=== PATIENT | male | born 1945 | race American Indian/Alaskan Native ===

== ENCOUNTER 2017-12-31 05:43 | Inpatient (IN) | payer MEDICARE ==
[2017-12-18 09:38] VITALS: BMI 26.9
[2017-12-31] MEDS ORDERED: ceFAZolin 1 gm in NS 1 GM/100 ML BAG IVPB ONE (08:04)
[2017-12-31] MEDS ORDERED: Bupivacaine 0.25% 20 ML INJ IJ ONE (08:05)
[2017-12-31] MEDS ORDERED: Propofol 10 mg/ml Inj (20 ML) ONE (08:10)
[2017-12-31] MEDS: Bupivacaine HCl 0.5% PF (30 ml) Inj ONE ×2 (09:03→09:12)
[2017-12-31] MEDS ORDERED: HYDROmorphone 0.5 mg/0.5 ml ISec IVP PRN (09:20)
--- NOTE | 2017-12-31 09:34 | PCM.SURG1 ---
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
[2017-12-31] MEDS ORDERED: Oxycodone/Acetaminophen 5/325 mg Tab PO PRN (11:01)
[2017-12-31] MEDS: Metoprolol Succinate 100 mg XL Tab PO SCH (16:35)
--- NOTE | 2017-12-31 23:49 | CP.PCM.HP ---
History of Present Illness - History of Present Illness History of Present Illness: CC: s/p resection of scortum du eto scortal cancer HPI: elderly male with h/o HTN, CAD, s/p angioplasty, CKD on Hd recently diagnosed with scrotal cancer and had partial scrotal resection and is now post op, has dressing on perineal area, denies any post op complains Present on Admission - Present on Admission Any Indicators Present on Admission: Yes Review of Systems - Review of Systems Systems not reviewed;Unavailable: Acuity of Condition - Constitutional Constitutional: Fatigue, Malaise - EENT Eyes: absent: As Per HPI, Blind Spots, Blurred Vision, Change in Vision, Decreased Night Vision, Diplopia, Discharge, Dry Eye, Exophthalmos, Floaters, Irritation, Itchy Eyes, Loss of Peripheral Vision, Pain, Photophobia, Requires Corrective Lenses, Sees Flashes, Spots in Vision, Tunnel Vision, Other Visual Disturbances, Loss of Vision, Other Nose/Mouth/Throat: absent: As Per HPI, Epistaxis, Nasal Congestion, Nasal Discharge, Nasal Obstruction, Nasal Trauma, Nose Pain, Post Nasal Drip, Sinus Pain, Sinus Pressure, Bleeding Gums, Change in Voice, Dental Pain, Dry Mouth, Dysphagia, Halitosis, Hoarsness, Lip Swelling, Mouth Lesions, Mouth Pain, Odynophagia, Sore Throat, Throat Swelling, Tongue Swelling, Facial Pain, Neck Pain, Neck Mass, Other - Cardiovascular Cardiovascular: absent: As Per HPI, Acrocyanosis, Chest Pain, Chest Pain at Rest , Chest Pain with Activity, Claudication, Diaphoresis, Dyspnea, Dyspnea on Exertion, Edema, Irregular Heart Rhythm, Pain Radiating to Arm/Neck/Jaw, Leg Edema, Leg Ulcers, Lightheadedness, Orthopnea, Palpitations, Paroxysmal Nocturnal Dyspnea, Pedal Edema, Radiating Pain, Rapid Heart Rate, Slow Heart Rate, Syncope, Other - Genitourinary Genitourinary: Dysuria, Flank Pain, Pyuria, Nocturia - Reproductive: Male Reproductive:Male: Genital Lesions, Pelvic Pain Past Patient History - Past Medical History & Family History Past Medical History?: Yes - Past Social History Smoking Status: Never Smoked - CARDIAC Hx Cardiac Disorders: Yes Hx Circulatory Problems: Yes (CARDIAC STENT PLACEMENT) Hx Hypercholesterolemia: Yes Hx Hypertension: Yes - PULMONARY Hx Respiratory Disorders: Yes Hx Chronic Obstructive Pulmonary Disease (COPD): Yes - HEENT Hx HEENT Problems: Yes Hx Cataracts: Yes (AWAITING SURGERY) - INTEGUMENTARY Hx Dermatological Problems: Yes Hx Squamous Cell: Yes (LEFT SCROTUM) - MUSCULOSKELETAL/RHEUMATOLOGICAL Hx Falls: No - GASTROINTESTINAL Hx Gastrointestinal Disorders: Yes Hx Bowel Surgery: Yes - GENITOURINARY/GYNECOLOGICAL Hx Genitourinary Disorders: Yes Hx Prostate Problems: Yes - PSYCHIATRIC Hx Substance Use: No - SURGICAL HISTORY Hx Surgeries: Yes Hx Coronary Stent: Yes (2 YEARS AGO) - ANESTHESIA Hx Anesthesia: Yes Hx Anesthesia Reactions: No Hx Malignant Hyperthermia: No Has any member of the family had a problem w/ anesthesia?: No Meds Allergies/Adverse Reactions: Allergies Allergy/AdvReac Type Severity Reaction Status Date / Time pollen Allergy CONGESTION Uncoded 11/11/15 06:58 Physical Exam - Constitutional Appears: No Acute Distress - Eye Exam Eye Exam: EOMI, Normal appearance, PERRL Pupil Exam: NORMAL ACCOMODATION, PERRL - Respiratory Exam Respiratory Exam: Clear to Auscultation Bilateral, Rhonchi, NORMAL BREATHING PATTERN - Cardiovascular Exam Cardiovascular Exam: Tachycardia, REGULAR RHYTHM, +S1, +S2 - GI/Abdominal Exam GI & Abdominal Exam: Normal Bowel Sounds, Soft. absent: Tenderness - Rectal Exam Rectal Exam: Deferred Results - Vital Signs Recent Vital Signs: Last Vital Signs Temp 99.1 F 12/31/17 20:00 Pulse 98 H 12/31/17 20:00 Resp 18 12/31/17 20:00 BP 135/68 12/31/17 20:00 Pulse Ox 98 12/31/17 20:00 Assessment & Plan (1) Scrotal cancer Status: Acute (2) HTN (hypertension) Status: Acute (3) CKD (chronic kidney disease) Status: Acute
[2018-01-01 02:31] VITALS: RESP 20
[2018-01-01 07:24] LABS: HEMOGLOBIN 10.5 g/dL (12.0-18.0); MEAN CELL VOLUME 78.7 fL (80.0-94.0); MEAN CORPUSCULAR HEMOGLOBIN 25.5 pg (27.0-31.0); MEAN CORPUSCULAR HGB CONC 32.5 g/dL (33.0-37.0); MEAN PLATELET VOLUME 8.7 fL (7.2-11.7); RBC 4.12 Mil/uL (4.40-5.90)
[2018-01-01 07:34] LABS: CALCIUM 8.5 mg/dl (8.6-10.4)
[2018-01-01 08:12] VITALS: BP 131/77; PULSE 79; TEMP 98.5; O2SAT 98
[2018-01-01] MEDS ORDERED: ceFAZolin IV 1 gm in Dextrose 1 GM/50 ML BAG IVPB ONE (09:00)
[2018-01-01] MEDS: Metoprolol Succinate 100 mg XL Tab PO SCH (10:17)
--- NOTE | 2018-01-01 21:18 | OP ---
PROCEDURE DATE: 01/01/2018 PREOPERATIVE DIAGNOSIS: Scrotal carcinoma. POSTOPERATIVE DIAGNOSIS: Scrotal carcinoma. PROCEDURES: 1. Left scrotectomy. 2. Scrotoplasty. SLASHER OPERATOR SURGEON: Rosanna Khan MD DESCRIPTION OF PROCEDURE: The patient received perioperative antibiotics. The patient received general anesthesia via laryngeal mask airway. The genitalia, abdomen, and thighs were prepped and draped in a sterile fashion, with the patient in a frogleg position. The site of the scrotal cancer was identified on the left inferolateral aspect of the scrotum. The tumor was approximately 6 cm in diameter. There were some small satellite lesions around the tumor inferiorly as well. The site of the section was marked with marking pen. Incision was performed through the skin using electrocautery in the cutting mode. A margin of 2 cm was obtained circumferentially from all visible tumor. The incision was extended through the skin and subcutaneous and scrotal wall layers. The testicle was palpated as well. Intentional entry into the tunica vaginalis was made by sharp dissection. A full scrotal wall excision was performed. The surgeon's index finger was within the tunica vaginalis/hydrocele space. The testicle was noted to be normal and undeveloped as was the spermatic cord. Full circumferential incision was accomplished using electrocautery. Hemostasis was achieved during the resection. The scrotal wall was thus removed. The wound was copiously irrigated. The scrotal wall was reapproximated. The round/elliptical incision was closed. The round incision was converted to a semi-curvilinear incision to accomplish primary closure, as the scrotoplasty was thus performed. The tunica vaginalis had been closed with continuous locking suture of 3-0 chromic. The scrotal wall was reapproximated with interrupted sutures of 3-0 chromic. The wound was irrigated. A sterile compressive dressing was applied. Scrotal support was applied. The patient was returned to the supine position. The patient tolerated the procedure without complication. Rosanna Khan MD
--- NOTE | 2018-01-01 23:50 | CP.PCM.DIS ---
Provider - Provider Date of Admission: 12/31/17 10:57 Attending physician: Rosanna Khan MD Time Spent in preparation of Discharge (in minutes): 45 Diagnosis - Discharge Diagnosis (1) Scrotal cancer Status: Acute (2) HTN (hypertension) Status: Acute (3) CKD (chronic kidney disease) Status: Acute Hospital Course - Lab Results Lab Results: Most Recent Lab Values WBC 14.0 K/uL (4.8-10.8) H D 01/01/18 06:38 RBC 4.12 Mil/uL (4.40-5.90) L 01/01/18 06:38 Hgb 10.5 g/dL (12.0-18.0) L 01/01/18 06:38 Hct 32.4 % (35.0-51.0) L 01/01/18 06:38 MCV 78.7 fL (80.0-94.0) L 01/01/18 06:38 MCH 25.5 pg (27.0-31.0) L 01/01/18 06:38 MCHC 32.5 g/dL (33.0-37.0) L 01/01/18 06:38 RDW 17.0 % (11.5-14.5) H 01/01/18 06:38 Plt Count 231 K/uL (130-400) 01/01/18 06:38 MPV 8.7 fL (7.2-11.7) 01/01/18 06:38 Sodium 141 mmol/L (132-148) 01/01/18 06:38 Potassium 5.0 mmol/L (3.6-5.2) 01/01/18 06:38 Chloride 111 mmol/L (98-107) H 01/01/18 06:38 Carbon Dioxide 20 mmol/L (22-30) L 01/01/18 06:38 Anion Gap 15 (10-20) 01/01/18 06:38 BUN 35 mg/dL (9-20) H 01/01/18 06:38 Creatinine 3.0 mg/dL (0.8-1.5) H 01/01/18 06:38 Est GFR ( Amer) 25 01/01/18 06:38 Est GFR (Non-Af Amer) 21 01/01/18 06:38 Random Glucose 90 mg/dL (75-110) 01/01/18 06:38 Calcium 8.5 mg/dl (8.6-10.4) L 01/01/18 06:38 - Hospital Course Hospital Course: Pt was discharged today s/p resection of scortal carcinoma Discharge Plan - Follow Up Plan Condition: GOOD Disposition: HOME/ ROUTINE Instructions: Testicular Cancer, Chronic Kidney Disease (DC), Managing Pain After Surgery, Renal Failure Diet (DC), Hypertension (DC) Additional Instructions: limit activity for 24 hours. do not engage in sports or heavy work until your physician gives you permission take your pain medication as ordered by your physician shower daily starting Sunday wash wound with betadine reapply scrotal support and gauze follow up appointment with Dr. Khan one week after discharge Referrals: Rosanna Khan MD [Staff Provider] -
== END 2018-01-01 12:05 | disposition home or self-care (01) | DRG 722 ==
LOC: C.SDS 05:43 → C.9S 10:57 → C.6T 15:19
PROVIDERS: ADMIT Urology; ATTEND Urology
PROC: 0VT Male Reproductive System, Resection (ICD-10-PCS; principal; 2018-01-01)
PROC: 0VQ50ZZ Repair Scrotum, Open Approach (ICD-10-PCS; 2018-01-01)
DX: C63.2 Malignant neoplasm of scrotum (principal); N18.6 End stage renal disease; I12.0 Hypertensive chronic kidney disease with stage 5 chronic kidney disease or end stage renal disease; I25.10 Atherosclerotic heart disease of native coronary artery without angina pectoris; E78.00 Pure hypercholesterolemia, unspecified; J44.9 Chronic obstructive pulmonary disease, unspecified; Z85.49 Personal history of malignant neoplasm of other male genital organs; Z95.5 Presence of coronary angioplasty implant and graft; Z99.2 Dependence on renal dialysis

== ENCOUNTER 2018-02-18 05:51 | Day surgery (SDC) | payer MEDICARE ==
[2017-12-18 09:37] VITALS: BMI 26.9
[2018-02-18] MEDS ORDERED: ceFAZolin IV 1 gm in Dextrose 1 GM/50 ML BAG IVPB ONE (07:23)
[2018-02-18] MEDS ORDERED: Propofol 10 mg/ml Inj (20 ML) ONE (07:44)
[2018-02-18] MEDS ORDERED: Midazolam 2 MG/2 ML VIAL ONE (07:44)
[2018-02-18] MEDS ORDERED: Bacitracin Ointment 30 GM TUBE ONE (08:50)
[2018-02-18] MEDS ORDERED: Bupivacaine 0.25% 20 ML INJ IJ ONE (08:53)
[2018-02-18] MEDS ORDERED: HYDROmorphone 0.5 mg/0.5 ml ISec IVP PRN (09:17)
--- NOTE | 2018-02-18 09:31 | PCM.SURG1 ---
Surgeon's Initial Post Op Note - Surgeon's Notes Surgeon: Herson Khan Career Coach: none Type of Anesthesia: General LMA Pre-Operative Diagnosis: L scrotal / perineal mass Operative Findings: same Post-Operative Diagnosis: same Operation Performed: excision of L scrotal/perineal mass Specimen/Specimens Removed: L scrotal mass Estimated Blood Loss: EBL {In ML}: 15 Blood Products Given: N/A Drains Used: No Drains Post-Op Condition: Good Date of Surgery/Procedure: 02/18/18 Time of Surgery/Procedure: 09:15
[2018-02-18 11:52] VITALS: BP 157/87; PULSE 79; RESP 16; TEMP 97.7; O2SAT 100
--- NOTE | 2018-02-19 07:20 | OP ---
Copied To: Rosanna Khan MD Attending MD: Rosanna Khan MD PROCEDURE DATE: 02/18/2018 PREOPERATIVE DIAGNOSES: History of left scrotal carcinoma. Left scrotal/perineal mass. POSTOPERATIVE DIAGNOSES: History of left scrotal carcinoma. Left scrotal/perineal mass. PROCEDURE: Excision of left scrotal/perineal mass. OPERATING SURGEON: Rosanna Khan MD DESCRIPTION OF PROCEDURE: As follows: The patient received perioperative antibiotics. The patient was placed in supine position. The patient received general anesthesia via laryngeal mask airway. The patient was placed in a frog-leg position. The genitalia and perineum were prepped and thighs were prepped and draped and abdomen was prepped and draped in sterile fashion. The mass was palpated. The scrotal skin was healed without lesion. There was a 1 to 2 cm area of induration in the perineum extending into the scrotum. The testicles were palpated bilaterally and were normal. The mass involved the left side. The site incision was marked with marking pen. An elliptical incision was marked. The skin incision was made with scalpel. Incision was extended using electrocautery. By sharp dissection, the mass was fully excised. The mass was in the subcutaneous tissue and did not extend into the tunica vaginalis. The wound was copiously irrigated with saline. Hemostasis was achieved using electrocautery. The wound was then closed in two layers with interrupted sutures of 3-0 chromic. Skin was reapproximated with interrupted simple suture of 3-0 chromic. A sterile dressing, compressive dressing, and scrotal support were applied. The patient was returned to the supine position. The patient tolerated the procedure without complication. Rosanna Khan MD
== END 2018-02-18 10:48 | disposition home or self-care (01) ==
LOC: C.SDS 05:51
PROVIDERS: ATTEND Urology
DX: N49.2 Inflammatory disorders of scrotum (principal); N50.89 Other specified disorders of the male genital organs; I10 Essential (primary) hypertension; I25.10 Atherosclerotic heart disease of native coronary artery without angina pectoris; Z85.49 Personal history of malignant neoplasm of other male genital organs
CPT/HCPCS: 55150; 88307; J0690; J2250; J2704; J3010

== ENCOUNTER 2018-09-24 07:46 | Outpatient (CLI) | payer MEDICARE | END 2018-09-24 07:47 | disposition home or self-care (01) | LOC: C.PAT 07:46 | DX: N50.9 Disorder of male genital organs, unspecified (principal) ==

== ENCOUNTER 2018-09-25 12:30 | Observation (INO) | payer MEDICARE ==
[2018-09-25 12:31] VITALS: BMI 25.4
[2018-09-25 14:53] LABS: BASO # 0.1 K/uL (0.0-0.2); BASO % 0.7 % (0.0-2.0); EOS # 0.2 K/uL (0.0-0.7); EOS % 2.1 % (0.0-4.0); HEMOGLOBIN 10.4 g/dL (12.0-18.0); LYMPH # 2.9 K/uL (1.0-4.3); MEAN CELL VOLUME 82.8 fL (80.0-94.0); MEAN CORPUSCULAR HEMOGLOBIN 26.4 pg (27.0-31.0); MEAN CORPUSCULAR HGB CONC 31.8 g/dL (33.0-37.0); MEAN PLATELET VOLUME 8.9 fL (7.2-11.7); MONO # 0.7 K/uL (0.0-0.8); MONO % 8.3 % (0.0-10.0); NEUT # 4.9 K/uL (1.8-7.0); NEUT % 55.9 % (50.0-75.0); RBC 3.95 Mil/uL (4.40-5.90); WHITE BLOOD COUNT 8.7 K/uL (4.8-10.8)
[2018-09-25 15:16] LABS: ALB/GLOB RATIO 1.2 (1.0-2.1); ALBUMIN 4.5 g/dL (3.5-5.0); ALT/SGPT < 6 U/L (21-72); AST/SGOT 29 U/L (17-59); BLOOD UREA NITROGEN 26 mg/dL (9-20); CALCIUM 8.9 mg/dl (8.6-10.4); GFR NON-AFRICAN AMERICAN 22
[2018-09-25 15:34] LABS: URINE BILIRUBIN NEGATIVE (NEGATIVE); URINE BLOOD NEGATIVE (NEGATIVE); URINE CLARITY Clear (Clear); URINE COLOR Yellow (YELLOW); URINE GLUCOSE (UA) NORMAL (Normal); URINE LEUKOCYTE ESTERASE NEG Leu/uL (Negative); URINE PROTEIN 2+ mg/dL (NEGATIVE); URINE UROBILINOGEN NORMAL mg/dL (0.2-1.0)
[2018-09-25] MEDS ORDERED: Sodium Chloride 0.9% 1,000 ML ONE (16:44)
[2018-09-25] MEDS: Sodium Chloride 0.9% 1,000 ML IV SCH (16:50)
--- NOTE | 2018-09-25 17:35 | C.PDOC ---
History Of Present Illness 73 y/o male is sent in by his PMD Dr. Herson Khan for elevated potassium and creatinine. Patient is scheduled for urologic procedure next week. He was advised by Dr. Khan to come to ED for evaluation. Patient currently has no physical complaints. Chief Complaint (Nursing): Abnormal Labs History Per: Patient History/Exam Limitations: no limitations Past Medical History Reviewed: Historical Data, Nursing Documentation, Vital Signs Vital Signs: Last Vital Signs Temp 98.2 F 09/25/18 13:22 Pulse 87 09/25/18 14:32 Resp 15 09/25/18 14:32 BP 173/103 H 09/25/18 14:32 Pulse Ox 100 09/25/18 14:32 - Medical History PMH: Colonic Polyps, COPD, HTN, Hypercholesterolemia Denies: Chronic Kidney Disease Surgical History: Coronary Stent (2 YEARS AGO) - [place] Procedures ENDOSC POLYPECTOMY OF LG INTEST (08/06/14) ESOPHAGOGASTRODUODENOSCOPY [EGD] W/CLOSED BIOPSY (07/04/13) OPEN AND OTHER RIGHT HEMICOLECTOMY (07/04/13) PARENTERAL INFUSION OF CONCENTRATED NUT. SUBSTANCE (07/04/13) Family History: States: No Known Family Hx - Social History Hx Alcohol Use: No Hx Substance Use: No Review Of Systems Except As Marked, All Systems Reviewed And Found Negative. Constitutional: Negative for: Fever, Chills Cardiovascular: Negative for: Chest Pain Respiratory: Negative for: Shortness of Breath Gastrointestinal: Negative for: Nausea, Vomiting, Abdominal Pain Genitourinary: Negative for: Dysuria, Hematuria Physical Exam - Physical Exam Appears: Non-toxic, No Acute Distress Skin: Warm, Dry Head: Atraumatic, Normacephalic Eye(s): bilateral: Normal Inspection Oral Mucosa: Moist Neck: Supple Cardiovascular: Rhythm Regular, No Murmur Respiratory: Normal Breath Sounds, No Rales, No Rhonchi, No Wheezing Extremity: Bilateral: Atraumatic, Normal Color And Temperature, Normal ROM Neurological/Psych: Oriented x3, Normal Speech, Normal Cognition ED Course And Treatment - Laboratory Results Result Diagrams: 09/25/18 14:47 09/25/18 14:47 Lab Results: Troponin I < 0.0120 ng/mL (0.00-0.120) 09/25/18 14:47 Total Bilirubin 0.6 mg/dL (0.2-1.3) 09/25/18 14:47 AST 29 U/L (17-59) 09/25/18 14:47 ALT < 6 U/L (21-72) L 09/25/18 14:47 Alkaline Phosphatase 147 U/L (38-126) H 09/25/18 14:47 Total Protein 8.1 g/dL (6.3-8.3) 09/25/18 14:47 Albumin 4.5 g/dL (3.5-5.0) 09/25/18 14:47 Globulin 3.6 gm/dL (2.2-3.9) 09/25/18 14:47 Albumin/Globulin Ratio 1.2 (1.0-2.1) 09/25/18 14:47 Urine Color Yellow (YELLOW) 09/25/18 15:16 Urine Clarity Clear (Clear) 09/25/18 15:16 Urine pH 7.0 (5.0-8.0) 09/25/18 15:16 Ur Specific [place] 1.012 (1.003-1.030) 09/25/18 15:16 Urine Protein 2+ mg/dL (NEGATIVE) H 09/25/18 15:16 Urine Glucose (UA) Normal mg/dL (Normal) 09/25/18 15:16 Urine Ketones Negative mg/dL (NEGATIVE) 09/25/18 15:16 Urine Blood Negative (NEGATIVE) 09/25/18 15:16 Urine Nitrate Negative (NEGATIVE) 09/25/18 15:16 Urine Bilirubin Negative (NEGATIVE) 09/25/18 15:16 Urine Urobilinogen Normal mg/dL (0.2-1.0) 09/25/18 15:16 Ur Leukocyte Esterase Neg Micheal/uL (Negative) 09/25/18 15:16 Urine WBC (Auto) < 1 /hpf (0-5) 09/25/18 15:16 Urine RBC (Auto) < 1 /hpf (0-3) 09/25/18 15:16 O2 Sat by Pulse Oximetry: 100 (RA) Pulse Ox Interpretation: Normal Medical Decision Making Medical Decision Making: Plan: --Labs --UA --IV fluids --Kayexalate Spoke to Dr. Escobar. Patient to be admitted to his service in telemetry. Disposition - Disposition Disposition: HOSPITALIZED Disposition Time: 15:50 Condition: FAIR - Clinical Impression Clinical Impression: Hyperkalemia, Acute on chronic renal failure - Scribe Statement The provider has reviewed the documentation as recorded by the Jillianibcece Gallagher Provider Attestation: All medical record entries made by the Jillianibe were at my direction and personally dictated by me. I have reviewed the chart and agree that the record accurately reflects my personal performance of the history, physical exam, m edical decision making, and the department course for this patient. I have also personally directed, reviewed, and agree with the discharge instructions and disposition.
[2018-09-25 21:12] LABS: CALCIUM 8.5 mg/dl (8.6-10.4)
--- NOTE | 2018-09-25 22:31 | CP.PCM.HP ---
Present on Admission - Present on Admission Any Indicators Present on Admission: No Past Patient History - Past Medical History & Family History Past Medical History?: Yes - Past Social History Smoking Status: Current Some Days Smoker - CARDIAC Hx Hypercholesterolemia: Yes Hx Hypertension: Yes - PULMONARY Hx Chronic Obstructive Pulmonary Disease (COPD): Yes - HEENT Hx HEENT Problems: Yes Hx Cataracts: Yes (AWAITING SURGERY) - RENAL Hx Chronic Kidney Disease: No - ENDOCRINE/METABOLIC Hx Endocrine Disorders: No - HEMATOLOGICAL/ONCOLOGICAL Hx Blood Disorders: No - INTEGUMENTARY Hx Dermatological Problems: Yes Hx Squamous Cell: Yes (LEFT SCROTUM) - MUSCULOSKELETAL/RHEUMATOLOGICAL Hx Musculoskeletal Disorders: No - GASTROINTESTINAL Hx Gastrointestinal Disorders: Yes Hx Bowel Surgery: Yes - GENITOURINARY/GYNECOLOGICAL Hx Genitourinary Disorders: Yes Hx Prostate Problems: Yes - PSYCHIATRIC Hx Substance Use: No - SURGICAL HISTORY Hx Coronary Stent: Yes (2 YEARS AGO) - ANESTHESIA Hx Anesthesia: Yes Hx Anesthesia Reactions: No Hx Malignant Hyperthermia: No Meds Allergies/Adverse Reactions: Allergies Allergy/AdvReac Type Severity Reaction Status Date / Time No Known Allergies Allergy Verified 02/13/18 09:09 Results - Vital Signs Recent Vital Signs: Last Vital Signs Temp 97.8 F 09/25/18 22:22 Pulse 78 09/25/18 22:22 Resp 20 09/25/18 22:22 BP 169/90 H 09/25/18 22:22 Pulse Ox 99 09/25/18 22:22 - Labs Result Diagrams: 09/25/18 14:47 09/25/18 20:51 Labs: Laboratory Results - last 24 hr 09/25/18 09/25/18 09/25/18 14:47 14:47 15:16 WBC 8.7 RBC 3.95 L Hgb 10.4 L Hct 32.7 L MCV 82.8 MCH 26.4 L MCHC 31.8 L RDW 16.0 H Plt Count 211 MPV 8.9 Neut % (Auto) 55.9 Lymph % (Auto) 33.0 [place] % (Auto) 8.3 Eos % (Auto) 2.1 Baso % (Auto) 0.7 Neut # (Auto) 4.9 Lymph # (Auto) 2.9 [place] # (Auto) 0.7 Eos # (Auto) 0.2 Baso # (Auto) 0.1 Sodium 136 Potassium 5.7 H Chloride 107 Carbon Dioxide 22 Anion Gap 13 BUN 26 H Creatinine 2.8 H Est GFR ( Amer) 27 Est GFR (Non-Af Amer) 22 Random Glucose 79 Calcium 8.9 Total Bilirubin 0.6 AST 29 ALT < 6 L Alkaline Phosphatase 147 H Troponin I < 0.0120 Total Protein 8.1 Albumin 4.5 Globulin 3.6 Albumin/Globulin Ratio 1.2 Urine Color Yellow Urine Clarity Clear Urine pH 7.0 Ur Specific [place] 1.012 Urine Protein 2+ H Urine Glucose (UA) Normal Urine Ketones Negative Urine Blood Negative Urine Nitrate Negative Urine Bilirubin Negative Urine Urobilinogen Normal Ur Leukocyte Esterase Neg Urine WBC (Auto) < 1 Urine RBC (Auto) < 1 09/25/18 20:51 WBC RBC Hgb Hct MCV MCH MCHC RDW Plt Count MPV Neut % (Auto) Lymph % (Auto) [place] % (Auto) Eos % (Auto) Baso % (Auto) Neut # (Auto) Lymph # (Auto) [place] # (Auto) Eos # (Auto) Baso # (Auto) Sodium 137 Potassium 5.4 H Chloride 109 H Carbon Dioxide 23 Anion Gap 10 BUN 25 H Creatinine 2.8 H Est GFR ( Amer) 27 Est GFR (Non-Af Amer) 22 Random Glucose 79 Calcium 8.5 L Total Bilirubin AST ALT Alkaline Phosphatase Troponin I Total Protein Albumin Globulin Albumin/Globulin Ratio Urine Color Urine Clarity Urine pH Ur Specific [place] Urine Protein Urine Glucose (UA) Urine Ketones Urine Blood Urine Nitrate Urine Bilirubin Urine Urobilinogen Ur Leukocyte Esterase Urine WBC (Auto) Urine RBC (Auto)
[2018-09-26] MEDS: Sodium Chloride 0.9% 1,000 ML IV SCH ×5 (02:30→22:30)
[2018-09-26] MEDS ORDERED: Pneumococcal 23-Valent Vaccine IM ONE (10:00)
[2018-09-26] MEDS: Cilostazol 50 mg Tab UD PO SCH (10:46)
[2018-09-26] MEDS: Metoprolol Succinate 100 mg XL Tab PO SCH (10:46)
--- NOTE | 2018-09-26 12:28 | HP ---
CHIEF COMPLAINT: The patient referred by urologist for high potassium and creatinine. HISTORY OF PRESENT ILLNESS: This is a 73-year-old -[place] male well-known to me with history of coronary artery disease, status post angioplasty, hypertension, hyperlipidemia, CKD, COPD, anxiety and depression. He is compliant with his diet, medication, and followup. He has obstructive uropathy due to BPH and he has been seen by urologist on an outpatient basis. Urologist referred the patient yesterday to ER because of elevated potassium level. The patient came to the emergency room. He denies any chest pain, palpitation. He had weakness, dizziness. He also had high blood pressure. No cough. No sore throat. There is no history of any dietary noncompliance. The patient denies any history of chest pain. The patient denies any history of dizziness, vertigo. He denies any joint pain, leg pain. He has tingling and numbness in the feet. He has difficulty walking with pain in the legs upon walking, relieved by rest. There is no history of fever, chills, rigors. There is no history of cough, sore throat, runny nose. There is no history of dysuria. PAST MEDICAL HISTORY: Colon polyps, COPD, hypertension, hyperlipidemia, CKD, coronary artery disease, status post 2 stents. SOCIAL HISTORY: Ex-smoker. Non-EtOH user. CURRENT MEDICATIONS AT HOME: He is on Toprol XL, Flomax, Singulair, Uloric, Pepcid, calcitriol, Lipitor. PHYSICAL EXAMINATION: GENERAL: An elderly female, in no acute distress. VITAL SIGNS: Blood pressure 162/86, pulse 77, respiratory rate 20, temperature 97.8. SKIN: No rashes. No bruises. No purpura. No petechiae. No ecchymosis. HEENT: Atraumatic and normocephalic. Negative pallor. Negative jaundice. Extraocular movements are intact. NECK: Supple. No JVD. No lymph node. No thyromegaly. CHEST WALL: Bilateral symmetrical expansion. LUNGS: No rales or rhonchi seen. CARDIOVASCULAR SYSTEM: S1 and S2, regular. ABDOMEN: Soft, nontender. Bowel sounds are positive. EXTREMITIES: No clubbing, cyanosis, or edema. The patient has absent pretibial artery in the feet. CENTRAL NERVOUS SYSTEM: Awake, alert, and oriented x3. ASSESSMENT: 1. Hyperkalemia. 2. Chronic kidney disease. 3. Poorly controlled hypertension. 4. Rule out [id number] kidney disease. PLAN: Admit. Kayexalate. Repeat potassium. Telemetry. Monitor the patient. Eze Escobar MD
--- NOTE | 2018-09-26 12:45 | US ---
Renal ultrasound HISTORY: Acute renal failure. COMPARISON: CT scan dated 09/24/2018 Technique: Real-time sonography was performed through the kidneys. FINDINGS: Right kidney: 9.5 x 4.8 x 4.8 centimeters. Increased echogenicity of the renal parenchymal cortex suggestive for medical renal disease. Small amount of free fluid seen anterior to the right kidney. No gross calculi or hydronephrosis. Limited visualization of the aorta. Left kidney: 9.3 x 5.0 x 4.7 centimeters. Increased echogenicity of the renal parenchymal cortex suggestive for medical renal disease. No calculi or hydronephrosis. Underdistended urinary bladder limits evaluation. Impression: Increased echogenicity of the bilateral renal parenchymal cortices suggestive for medical renal disease. Clinical correlation. Small amount of free fluid adjacent and anterior to the right kidney. Clinical correlation. Limited visualization of the aorta. Underdistended urinary bladder limits evaluation.
[2018-09-26 14:35] LABS: CALCIUM 8.8 mg/dl (8.6-10.4)
--- NOTE | 2018-09-26 20:19 | CP.PCM.CON ---
History of Present Illness - History of Present Illness History of Present Illness: UROLOGY CONSULTATION IMP: SCROTAL CANCER LYMPHADENOPATHY CKD HYPERKALEMIA FULL NOTE TBD THANK YOU ys Past Patient History - Past Medical History & Family History Past Medical History?: Yes - Past Social History Smoking Status: Current Some Days Smoker - CARDIAC Hx Hypercholesterolemia: Yes Hx Hypertension: Yes - PULMONARY Hx Chronic Obstructive Pulmonary Disease (COPD): Yes - HEENT Hx HEENT Problems: Yes Hx Cataracts: Yes (AWAITING SURGERY) - RENAL Hx Chronic Kidney Disease: No - ENDOCRINE/METABOLIC Hx Endocrine Disorders: No - HEMATOLOGICAL/ONCOLOGICAL Hx Blood Disorders: No - INTEGUMENTARY Hx Dermatological Problems: Yes Hx Squamous Cell: Yes (LEFT SCROTUM) - MUSCULOSKELETAL/RHEUMATOLOGICAL Hx Musculoskeletal Disorders: No - GASTROINTESTINAL Hx Gastrointestinal Disorders: Yes Hx Bowel Surgery: Yes - GENITOURINARY/GYNECOLOGICAL Hx Genitourinary Disorders: Yes Hx Prostate Problems: Yes - PSYCHIATRIC Hx Substance Use: No - SURGICAL HISTORY Hx Coronary Stent: Yes (2 YEARS AGO) - ANESTHESIA Hx Anesthesia: Yes Hx Anesthesia Reactions: No Hx Malignant Hyperthermia: No Meds Allergies/Adverse Reactions: Allergies Allergy/AdvReac Type Severity Reaction Status Date / Time No Known Allergies Allergy Verified 02/13/18 09:09 - Medications Medications: Current Medications Amlodipine Besylate (Norvasc) 5 mg PO DAILY [facility] Last Admin: 09/26/18 10:46 Dose: 5 mg Calcitriol (Rocaltrol) 0.25 mcg PO QOD6 [facility] Cilostazol (Pletal) 50 mg PO DAILY [facility] Last Admin: 09/26/18 10:46 Dose: 50 mg Famotidine (Pepcid) 20 mg PO DAILY [facility] Heparin Sodium (Porcine) (Heparin) 5,000 units SC Q12 [facility] Last Admin: 09/26/18 10:46 Dose: 5,000 units Sodium Chloride (Sodium Chloride 0.9%) 1,000 mls @ 100 mls/hr IV .Q10H [facility] Last Admin: 09/26/18 18:10 Dose: 100 mls/hr Metoprolol Succinate (Toprol Xl) 100 mg PO DAILY [facility] Last Admin: 09/26/18 10:46 Dose: 100 mg Rosuvastatin Calcium (Crestor) 10 mg PO HS [facility] Sodium Polystyrene Sulfonate (Kayexalate) 15 gm PO TTS [facility] Last Admin: 09/26/18 18:10 Dose: 15 gm Tamsulosin HCl (Flomax) 0.4 mg PO DAILY [facility] Last Admin: 09/26/18 10:45 Dose: 0.4 mg Results - Vital Signs Recent Vital Signs: Last Vital Signs Temp 98.3 F 09/26/18 15:00 Pulse 79 09/26/18 16:00 Resp 20 09/26/18 15:00 BP 164/79 H 09/26/18 15:00 Pulse Ox 99 09/26/18 16:00 - Labs Result Diagrams: 09/25/18 14:47 09/26/18 13:54 Labs: Laboratory Results - last 24 hr 09/25/18 09/26/18 20:51 13:54 Sodium 137 137 Potassium 5.4 H 5.3 H Chloride 109 H 107 Carbon Dioxide 23 23 Anion Gap 10 12 BUN 25 H 26 H Creatinine 2.8 H 2.6 H Est GFR ( Amer) 27 29 Est GFR (Non-Af Amer) 22 24 Random Glucose 79 88 Calcium 8.5 L 8.8 Assessment & Plan - Date & Time Date: 09/26/18 Time: 20:18
--- NOTE | 2018-09-26 21:40 | CP.PCM.PN ---
Subjective - Date & Time of Evaluation Date of Evaluation: 09/26/18 Time of Evaluation: 19:40 - Subjective Subjective: dictated Objective - Vital Signs/Intake and Output Vital Signs (last 24 hours): Temp Pulse Resp BP Pulse Ox 98.3 F 79 20 164/79 H 99 09/26/18 15:00 09/26/18 16:00 09/26/18 15:00 09/26/18 15:00 09/26/18 16:00 Intake and Output: 09/26/18 09/27/18 18:59 06:59 Intake Total 800 Balance 800 - Medications Medications: Current Medications Amlodipine Besylate (Norvasc) 5 mg PO DAILY [facility] Last Admin: 09/26/18 10:46 Dose: 5 mg Calcitriol (Rocaltrol) 0.25 mcg PO QOD6 [facility] Cilostazol (Pletal) 50 mg PO DAILY [facility] Last Admin: 09/26/18 10:46 Dose: 50 mg Famotidine (Pepcid) 20 mg PO DAILY [facility] Heparin Sodium (Porcine) (Heparin) 5,000 units SC Q12 [facility] Last Admin: 09/26/18 21:01 Dose: 5,000 units Sodium Chloride (Sodium Chloride 0.9%) 1,000 mls @ 100 mls/hr IV .Q10H [facility] Last Admin: 09/26/18 18:10 Dose: 100 mls/hr Metoprolol Succinate (Toprol Xl) 100 mg PO DAILY [facility] Last Admin: 09/26/18 10:46 Dose: 100 mg Rosuvastatin Calcium (Crestor) 10 mg PO HS [facility] Last Admin: 09/26/18 21:01 Dose: 10 mg Sodium Polystyrene Sulfonate (Kayexalate) 15 gm PO TTS [facility] Last Admin: 09/26/18 18:10 Dose: 15 gm Tamsulosin HCl (Flomax) 0.4 mg PO DAILY [facility] Last Admin: 09/26/18 10:45 Dose: 0.4 mg - Labs Labs: 09/25/18 14:47 09/26/18 13:54
--- NOTE | 2018-09-26 23:34 | PN ---
DATE: 09/26/2018 SUBJECTIVE: The patient is feeling better. He is afebrile. No shortness of breath. No chest pain. His potassium is persistently high. He is on IV fluids. No nausea, vomiting. No weakness. No dizziness. PHYSICAL EXAMINATION: VITAL SIGNS: Blood pressure 164/79, pulse 83, respiratory rate 20, temperature 98.3. LUNGS: Clear. No rales. No rhonchi. Decreased air entry. CARDIOVASCULAR SYSTEM: S1 and S2, regular. No heave. No thrill. ABDOMEN: Soft, nontender. Bowel sounds are positive. ASSESSMENT: 1. Acute hyperkalemia, which is most likely due to renal insufficiency with type IV renal tubular acidosis is a possibility. 2. Chronic kidney disease. 3. Hypertension. 4. Chronic obstructive pulmonary disease. 5. Coronary artery disease. PLAN: Kayexalate. Repeat BNP. Renal consult. Monitor the patient. Eze Escobar MD
[2018-09-27] MEDS: Sodium Chloride 0.9% 1,000 ML IV SCH ×2 (04:34→08:21)
[2018-09-27 07:38] VITALS: RESP 20; TEMP 97.3; O2SAT 100
[2018-09-27 08:27] LABS: CALCIUM 8.6 mg/dl (8.6-10.4)
[2018-09-27] MEDS: Metoprolol Succinate 100 mg XL Tab PO SCH (09:29)
[2018-09-27] MEDS: Cilostazol 50 mg Tab UD PO SCH (09:29)
--- NOTE | 2018-09-27 12:19 | CP.PCM.PN ---
Subjective - Date & Time of Evaluation Date of Evaluation: 09/27/18 Time of Evaluation: 10:35 - Subjective Subjective: patient seen today , denies any complaints labs - reviewed- stable - cr- baseline - 2.8 - 3 potassium - improved- 4.7<5.6<6 Objective - Vital Signs/Intake and Output Vital Signs (last 24 hours): Temp Pulse Resp BP Pulse Ox 97.3 F L 69 20 165/82 H 100 09/27/18 07:20 09/27/18 07:20 09/27/18 07:20 09/27/18 08:02 09/27/18 07:20 Intake and Output: 09/27/18 09/27/18 06:59 18:59 Intake Total 1150 800 Output Total 800 Balance 1150 0 - Medications Medications: Current Medications Amlodipine Besylate (Norvasc) 5 mg PO DAILY [facility] Last Admin: 09/27/18 09:29 Dose: 5 mg Calcitriol (Rocaltrol) 0.25 mcg PO QOD6 [facility] Cilostazol (Pletal) 50 mg PO DAILY [facility] Last Admin: 09/27/18 09:29 Dose: 50 mg Famotidine (Pepcid) 20 mg PO DAILY [facility] Last Admin: 09/27/18 09:29 Dose: 20 mg Heparin Sodium (Porcine) (Heparin) 5,000 units SC Q12 [facility] Last Admin: 09/27/18 09:29 Dose: 5,000 units Sodium Chloride (Sodium Chloride 0.9%) 1,000 mls @ 100 mls/hr IV .Q10H [facility] Last Admin: 09/27/18 08:21 Dose: Not Given Metoprolol Succinate (Toprol Xl) 100 mg PO DAILY [facility] Last Admin: 09/27/18 09:29 Dose: 100 mg Rosuvastatin Calcium (Crestor) 10 mg PO HS [facility] Last Admin: 09/26/18 21:01 Dose: 10 mg Sodium Polystyrene Sulfonate (Kayexalate) 15 gm PO TTS [facility] Last Admin: 09/26/18 18:10 Dose: 15 gm Tamsulosin HCl (Flomax) 0.4 mg PO DAILY [facility] Last Admin: 09/27/18 09:29 Dose: 0.4 mg - Labs Labs: 09/25/18 14:47 09/27/18 08:07 Assessment and Plan - Assessment and Plan (Free Text) Assessment: A/P 73 yr old male with pmhx of COPD, HTN, Hypercholesterolemia ,Chronic Kidney Disease admitted for elevated potassium and creatinine cr- improved and base line before between 2.8-3 potassium improved from 6- 4.7 BP slightly elevated - started on norvasc D/W Dr. Escobar cleared for discharge home today and f/u with Dr. Escobar office in 1 week
[2018-09-27 13:25] VITALS: BP 158/78; PULSE 79
--- NOTE | 2018-09-27 22:21 | CP.PCM.DIS ---
Provider - Provider Date of Admission: 09/25/18 16:24 Attending physician: Eze Escobar MD Consults: 09/26/18 09:33 Urology Consult Routine Comment: pt known to you Consulting Provider: Rosanna Khan Consulting Physician: Rosanna Khan Reason for Consult: ARF 09/26/18 12:24 Nephrology Consult Routine Comment: Consulting Provider: Cynthia Moreland Consulting Physician: Cynthia Moreland Reason for Consult: CRF Time Spent in preparation of Discharge (in minutes): 30 Hospital Course - Lab Results Lab Results: Micro Results 09/25/18 15:16 Urine,Clean Catch Urine Culture - Final No Growth (<1,000 CFU/ML) Most Recent Lab Values WBC 8.7 K/uL (4.8-10.8) 09/25/18 14:47 RBC 3.95 Mil/uL (4.40-5.90) L 09/25/18 14:47 Hgb 10.4 g/dL (12.0-18.0) L 09/25/18 14:47 Hct 32.7 % (35.0-51.0) L 09/25/18 14:47 MCV 82.8 fL (80.0-94.0) 09/25/18 14:47 MCH 26.4 pg (27.0-31.0) L 09/25/18 14:47 MCHC 31.8 g/dL (33.0-37.0) L 09/25/18 14:47 RDW 16.0 % (11.5-14.5) H 09/25/18 14:47 Plt Count 211 K/uL (130-400) 09/25/18 14:47 MPV 8.9 fL (7.2-11.7) 09/25/18 14:47 Neut % (Auto) 55.9 % (50.0-75.0) 09/25/18 14:47 Lymph % (Auto) 33.0 % (20.0-40.0) 09/25/18 14:47 [place] % (Auto) 8.3 % (0.0-10.0) 09/25/18 14:47 Eos % (Auto) 2.1 % (0.0-4.0) 09/25/18 14:47 Baso % (Auto) 0.7 % (0.0-2.0) 09/25/18 14:47 Neut # (Auto) 4.9 K/uL (1.8-7.0) 09/25/18 14:47 Lymph # (Auto) 2.9 K/uL (1.0-4.3) 09/25/18 14:47 [place] # (Auto) 0.7 K/uL (0.0-0.8) 09/25/18 14:47 Eos # (Auto) 0.2 K/uL (0.0-0.7) 09/25/18 14:47 Baso # (Auto) 0.1 K/uL (0.0-0.2) 09/25/18 14:47 Sodium 138 mmol/L (132-148) 09/27/18 08:07 Potassium 4.7 mmol/L (3.6-5.2) 09/27/18 08:07 Chloride 110 mmol/L (98-107) H 09/27/18 08:07 Carbon Dioxide 22 mmol/L (22-30) 09/27/18 08:07 Anion Gap 11 (10-20) 09/27/18 08:07 BUN 26 mg/dL (9-20) H 09/27/18 08:07 Creatinine 2.8 mg/dL (0.8-1.5) H 09/27/18 08:07 Est GFR ( Amer) 27 09/27/18 08:07 Est GFR (Non-Af Amer) 22 09/27/18 08:07 Random Glucose 78 mg/dL (75-110) 09/27/18 08:07 Calcium 8.6 mg/dl (8.6-10.4) 09/27/18 08:07 Total Bilirubin 0.6 mg/dL (0.2-1.3) 09/25/18 14:47 AST 29 U/L (17-59) 09/25/18 14:47 ALT < 6 U/L (21-72) L 09/25/18 14:47 Alkaline Phosphatase 147 U/L (38-126) H 09/25/18 14:47 Troponin I < 0.0120 ng/mL (0.00-0.120) 09/25/18 14:47 Total Protein 8.1 g/dL (6.3-8.3) 09/25/18 14:47 Albumin 4.5 g/dL (3.5-5.0) 09/25/18 14:47 Globulin 3.6 gm/dL (2.2-3.9) 09/25/18 14:47 Albumin/Globulin Ratio 1.2 (1.0-2.1) 09/25/18 14:47 Urine Color Yellow (YELLOW) 09/25/18 15:16 Urine Clarity Clear (Clear) 09/25/18 15:16 Urine pH 7.0 (5.0-8.0) 09/25/18 15:16 Ur Specific Nelson 1.012 (1.003-1.030) 09/25/18 15:16 Urine Protein 2+ mg/dL (NEGATIVE) H 09/25/18 15:16 Urine Glucose (UA) Normal mg/dL (Normal) 09/25/18 15:16 Urine Ketones Negative mg/dL (NEGATIVE) 09/25/18 15:16 Urine Blood Negative (NEGATIVE) 09/25/18 15:16 Urine Nitrate Negative (NEGATIVE) 09/25/18 15:16 Urine Bilirubin Negative (NEGATIVE) 09/25/18 15:16 Urine Urobilinogen Normal mg/dL (0.2-1.0) 09/25/18 15:16 Ur Leukocyte Esterase Neg Micheal/uL (Negative) 09/25/18 15:16 Urine WBC (Auto) < 1 /hpf (0-5) 09/25/18 15:16 Urine RBC (Auto) < 1 /hpf (0-3) 09/25/18 15:16 Discharge Plan - Discharge Medications Prescriptions: Sodium Polystyrene Sulfonate [kayeXALATE Susp] 30 gm NA WM #8 bottle amLODIPine [Norvasc] 10 mg PO DAILY #60 tab Famotidine [Pepcid] 20 mg PO DAILY #30 tab - Follow Up Plan Condition: FAIR Disposition: HOME/ ROUTINE Instructions: Kidney Disease Diet (For People Not on Dialysis), Acute Kidney Failure (DC), Amlodipine, Famotidine, Sodium Polystyrene Sulfonate, Chronic Kidney Disease (DC), Hyperkalemia (GEN) Additional Instructions: Please follow up with Dr. Escobar office in 1 week Please continue kayexalate every week on Joni Please call Dr. Khan for domenico pre op procedure instructions for Sunday continue medication as per med. rec. [facility] Referrals: Eze Escobar MD [Staff Provider] -
--- NOTE | 2018-09-28 09:22 | DS ---
CHIEF COMPLAINT: Referred by urology physician. DISCHARGE DIAGNOSES: 1. Hyperkalemia due to chronic kidney disease. 2. Chronic kidney disease. 3. Hypertension. 4. Coronary artery disease, status post stent. 5. Chronic obstructive pulmonary disease. HISTORY OF PRESENT ILLNESS: This is a 73-year-old male, chronically sick with a history of PAD, coronary artery disease, hypertension, multiple stents, and who has been having some cough, and now, he has some urinary symptoms and he needs urological surgery. The patient's routine preop analysis was found to have hyperkalemia, referred to emergency room. He has baseline creatinine of around 3. The patient denies any chest pain, palpitation, weakness, or dizziness. He denies any history of polyuria, polydipsia, or polyphagia. He denies any history of joint pain or hip. He denies any history of tingling, numbness, or paraesthesia. There is no history of seizure-like activity. PAST MEDICAL HISTORY: CKD, hypertension, coronary artery disease, angioplasty, peripheral arterial disease, and poor memory. SOCIAL HISTORY: Nonsmoker. Non-ETOH user. CURRENT MEDICATIONS: Flomax, Singulair, Toprol, Pletal, Lipitor, Norvasc, Kayexalate, and Pepcid. PHYSICAL EXAMINATION: LUNGS: Clear. ABDOMEN: Soft, nontender. Bowel sounds are positive. RECTAL: Negative. EXTREMITIES: No clubbing, cyanosis, or edema. ASSESSMENT: 1. Hyperkalemia with chronic kidney disease, most likely the patient has type 4 renal tubular acidosis with component from poor diet compliant. 2. Poorly controlled hypertension. 3. Chronic kidney disease. 4. Hyperlipidemia. PLAN: Admit. Detail orders are written. Seen and examined. Eze Escobar MD
--- NOTE | 2018-09-28 23:59 | CON ---
DATE: 09/26/2018 UROLOGY CONSULTATION REQUESTED BY: Eze Escobar MD REASON FOR CONSULTATION: History of scrotal cancer. HISTORY OF PRESENT ILLNESS: The patient is a 73-year-old male with history of scrotal cancer. In 2018, the patient underwent a partial scrotectomy for scrotal cancer. The patient has been noted to have inguinal lymphadenopathy. The patient is scheduled for lymph node biopsy next week. During preadmission testing, the patient was found to have hyperkalemia with potassium of 6. The patient presented to the emergency room for evaluation of hyperkalemia. There was improvement of the potassium. However, the patient was found to have peaked T waves. The patient is now admitted for further evaluation and therapy. Mr. Handley reports good appetite. No recent hematuria or dysuria. No flank pain. The patient has normal bowel movements. The patient has history of chronic kidney disease. Creatinine once in the range of 2.5. The patient reports no abdominal pain or flank pain. No recent weight loss. The patient voids with a good urinary stream and good control. No incontinence. PHYSICAL EXAMINATION: GENERAL: The patient is a well-developed, well-nourished elderly male. The patient is awake and alert. ABDOMEN: Soft, nontender, and nondistended. No mass or organomegaly. BACK: No CVA tenderness. LYMPH NODES: There is left inguinal lymphadenopathy approximately 2 to 3 cm in size. The lymphadenopathy is firm and rounded with some fixation. IMPRESSION: History of left scrotal cancer, now with left inguinal adenopathy. The patient is now admitted for evaluation of renal insufficiency with hyperkalemia. PLAN: As per Nephrology and Medicine, the patient is scheduled for surgery next week. Review CT scan done on 09/24/2018. Further therapy to follow according to patient's clinical course. Thank you for recommending the patient for urology consultation. Rosanna Khan MD cc: Eze Escobar MD
--- NOTE | 2018-09-29 20:10 | CARD ---
APPROVED REPORT Date of service: 09/25/2018 EKG Measurement Heart [id number] <Conclusion> Normal sinus rhythm Normal ECG
== END 2018-09-27 13:52 | disposition home or self-care (01) ==
LOC: C.ER 12:30 → C.9E 16:24 → C.6T 18:01
PROVIDERS: ADMIT Internal Medicine; ATTEND Internal Medicine
DX: E87.5 Hyperkalemia (principal); I12.9 Hypertensive chronic kidney disease with stage 1 through stage 4 chronic kidney disease, or unspecified chronic kidney disease; E78.00 Pure hypercholesterolemia, unspecified; J44.9 Chronic obstructive pulmonary disease, unspecified; E78.5 Hyperlipidemia, unspecified; I25.10 Atherosclerotic heart disease of native coronary artery without angina pectoris; I73.9 Peripheral vascular disease, unspecified; N18.9 Chronic kidney disease, unspecified; N40.1 Benign prostatic hyperplasia with lower urinary tract symptoms; Z86.010 Personal history of colon polyps; Z87.891 Personal history of nicotine dependence; Z85.49 Personal history of malignant neoplasm of other male genital organs; Z95.5 Presence of coronary angioplasty implant and graft
CPT/HCPCS: 36415; 76770; 76857; 80048; 80053; 81001; 84484; 85025; 87086; 93005; 97116; 97162; 99285; G0378; G8978; G8979; G8980; J1644; J7030

== ENCOUNTER 2018-09-30 05:59 | Inpatient (IN) | payer MEDICARE ==
[2018-09-30] MEDS ORDERED: ceFAZolin 1 gm in NS 2 GM/200 ML BAG IVPB ONE (07:39)
[2018-09-30] MEDS ORDERED: Bupivacaine 0.25% 20 ML INJ IJ ONE (07:39)
[2018-09-30] MEDS ORDERED: Midazolam 2 MG/2 ML VIAL ONE (08:01)
[2018-09-30] MEDS ORDERED: Propofol 10 mg/ml Inj (20 ML) ONE (08:01)
[2018-09-30] MEDS ORDERED: HYDROmorphone 0.5 mg/0.5 ml ISec IVP PRN (10:49)
[2018-09-30] MEDS ORDERED: Dextrose 5%/0.45% NS 1,000 ML IV ONE (11:50)
[2018-09-30] MEDS ORDERED: Oxycodone/Acetaminophen 5/325 mg Tab PO PRN (13:15)
[2018-09-30] MEDS: Dextrose 5%/0.45% NS 1,000 ML IV SCH (19:30)
--- NOTE | 2018-09-30 21:39 | CP.PCM.CON ---
History of Present Illness - History of Present Illness History of Present Illness: dictated Past Patient History - Past Medical History & Family History Past Medical History?: Yes - Past Social History Smoking Status: Smoker Currrent Status Unknown - CARDIAC Hx Cardiac Disorders: Yes Hx Circulatory Problems: Yes (CARDIAC STENT PLACEMENT) Hx Hypercholesterolemia: Yes Hx Hypertension: Yes - PULMONARY Hx Respiratory Disorders: Yes Hx Chronic Obstructive Pulmonary Disease (COPD): Yes - HEENT Hx HEENT Problems: Yes Hx Blind: Yes (left eye) Hx Cataracts: Yes (AWAITING SURGERY) - HEMATOLOGICAL/ONCOLOGICAL Hx Blood Disorders: Yes Hx Cancer: Yes (scrotal cancer) - INTEGUMENTARY Hx Dermatological Problems: Yes Hx Squamous Cell: Yes (LEFT SCROTUM) - MUSCULOSKELETAL/RHEUMATOLOGICAL Hx Falls: No - GASTROINTESTINAL Hx Gastrointestinal Disorders: Yes Hx Bowel Surgery: Yes - GENITOURINARY/GYNECOLOGICAL Hx Genitourinary Disorders: Yes Hx Prostate Problems: Yes Other/Comment: scrotal cancer - PSYCHIATRIC Hx Substance Use: No - SURGICAL HISTORY Hx Surgeries: Yes Hx Cardiac Catheterization: Yes (5 yaers ago) Hx Coronary Stent: Yes (2 YEARS AGO) Other/Comment: Scrotal Surgery - ANESTHESIA Hx Anesthesia: Yes Hx Anesthesia Reactions: No Hx Malignant Hyperthermia: No Has any member of the family had a problem w/ anesthesia?: No Meds Allergies/Adverse Reactions: Allergies Allergy/AdvReac Type Severity Reaction Status Date / Time No Known Allergies Allergy Verified 02/13/18 09:09 - Medications Medications: Current Medications Cilostazol (Pletal) 100 mg PO DAILY [facility] Famotidine (Pepcid) 20 mg PO DAILY [facility] Hydromorphone HCl (Dilaudid) 0.5 mg IVP Q10M PRN PRN Reason: Pain, moderate (4-7) Last Admin: 09/30/18 11:36 Dose: 0.5 mg Cefazolin Sodium 1,000 mg/ (Sodium Chloride) 100 mls @ 100 mls/hr IVPB Q8H [facility]; Protocol Last Admin: 09/30/18 17:00 Dose: 0 mls Dextrose/Sodium Chloride (Dextrose 5%/0.45% Ns 1000 Ml) 1,000 mls @ 100 mls/hr IV .Q10H [facility] Metoprolol Succinate (Toprol Xl) 100 mg PO DAILY [facility] Montelukast Sodium (Singulair) 10 mg PO DAILY [facility] Oxycodone/Acetaminophen (Percocet 5/325 Mg Tab) 1 tab PO Q4H PRN PRN Reason: Pain, moderate (4-7) Stop: 10/03/18 13:16 Pneumococcal Polyvalent Vaccine (Pneumovax 23 Vaccine) 0.5 ml IM .ONCE ONE Stop: 10/03/18 10:01 Rosuvastatin Calcium (Crestor) 20 mg PO HS [facility] Tamsulosin HCl (Flomax) 0.4 mg PO DAILY [facility] Results - Vital Signs Recent Vital Signs: Last Vital Signs Temp 97.6 F 09/30/18 18:30 Pulse 82 09/30/18 18:30 Resp 15 09/30/18 18:30 BP 140/77 09/30/18 18:30 Pulse Ox 100 09/30/18 18:30 - Labs Result Diagrams: 09/30/18 07:01 Labs: Laboratory Results - last 24 hr 09/30/18 07:01 Potassium 4.5
[2018-09-30 22:54] VITALS: RESP 20
--- NOTE | 2018-10-01 00:01 | PCM.SURG1 ---
Surgeon's Initial Post Op Note - Surgeon's Notes Surgeon: Alin Lisa Top Polisher: Kenia Type of Anesthesia: General LMA Pre-Operative Diagnosis: Hx of scrotal cancer. L inguinal lymphadenopathy Operative Findings: same Post-Operative Diagnosis: same Operation Performed: L inguinal lymphadenectomy Specimen/Specimens Removed: L inguinal lymph nodes Estimated Blood Loss: EBL {In ML}: 20 Blood Products Given: N/A Drains Used: Navdeep Post-Op Condition: Good Date of Surgery/Procedure: 09/30/18 Time of Surgery/Procedure: 10:30
--- NOTE | 2018-10-01 06:17 | CON ---
DATE: 09/30/2018 The patient is admitted post-operatively. HISTORY OF PRESENT ILLNESS: This is a 73-year-old male, well known to me with a history of coronary artery disease, status post stents, hypertension, hyperlipidemia, CKD, not on hemodialysis. He is compliant with his diet, medications and followup with Urology, and he is hospitalized postop. Postop, he is out of the recovery and he is on the floor due to chest pain, shortness of breath, diaphoresis, dizziness, and palpitations. He denies any nausea, vomiting, or abdominal pain. He denies any dizziness. He denies any difficulty breathing. There is tingling and numbness in the feet. He gets claudication while ambulating. There is no history of dysuria. The patient has currently Espinoza catheter in place with clear yellow straw-colored urine. There is no further symptom. There is no history of sneezing, itchy eyes, or itchy nose. PAST MEDICAL HISTORY: CKD stage 4, benign prostatic hyperplasia, hypertension, hyperlipidemia, coronary artery disease, status post angioplasty, and COPD. SOCIAL HISTORY: Ex-smoker, ex-ETOH user. CURRENT MEDICATIONS: Toprol-XL, Flomax, Proscar, and aspirin. FAMILY HISTORY: Negative for prostate cancer. PHYSICAL EXAMINATION: GENERAL: An elderly male who is not in any acute cardiopulmonary distress. VITAL SIGNS: Blood pressure 132/60, pulse 64, respiratory rate 20, and temperature 99. SKIN: Senile turgor, dry. HEENT: Atraumatic and normocephalic. Negative pallor. Negative jaundice. Extraocular movements are intact. NECK: Supple. No JVD. No lymph node. No thyromegaly. CHEST WALL: Bilateral symmetrical expansion. LUNGS: Clear. No rales. No rhonchi. CARDIOVASCULAR SYSTEM: PMI not localized. S1 and S2, regular. No heave. No thrill. ABDOMEN: Soft and nontender. Bowel sounds are positive. RECTAL: Deferred because of postop. PELVIS: Deferred because of postop. CENTRAL NERVOUS SYSTEM: Awake, alert, and oriented x3. Cranial nerves II through XII are normal. Power is 5/5 x4. Plantars are downgoing. EXTREMITIES: The patient has absent dorsalis pedis and posterior tibial arteries. There is no clubbing, cyanosis, or edema. ASSESSMENT: 1. Status post cystoscopy. We will observe the patient. 2. Hypertension. 3. Coronary artery disease. 4. Chronic obstructive pulmonary disease. PLAN: Admit. Detailed orders are written. Seen and examined. Eze Escobar MD
[2018-10-01] MEDS: Dextrose 5%/0.45% NS 1,000 ML IV SCH ×3 (07:20→18:30)
[2018-10-01] MEDS: Metoprolol Succinate 100 mg XL Tab PO SCH (09:53)
[2018-10-01] MEDS: Cilostazol 100 mg Tab UD PO SCH (09:54)
[2018-10-01 12:01] LABS: BASO % 0.4 % (0.0-2.0); EOS # 0.1 K/uL (0.0-0.7); EOS % 1.7 % (0.0-4.0); LYMPH # 2.5 K/uL (1.0-4.3); LYMPH % 30.1 % (20.0-40.0); MEAN CELL VOLUME 81.6 fL (80.0-94.0); MEAN CORPUSCULAR HEMOGLOBIN 26.6 pg (27.0-31.0); MEAN CORPUSCULAR HGB CONC 32.6 g/dL (33.0-37.0); MEAN PLATELET VOLUME 8.4 fL (7.2-11.7); MONO # 0.7 K/uL (0.0-0.8); MONO % 8.2 % (0.0-10.0); NEUT # 4.9 K/uL (1.8-7.0); NEUT % 59.6 % (50.0-75.0); NRBC % 0.1 % (0.0-2.0); RBC 3.75 Mil/uL (4.40-5.90); WHITE BLOOD COUNT 8.3 K/uL (4.8-10.8)
[2018-10-01 12:20] LABS: ALBUMIN 3.5 g/dL (3.5-5.0); ALT/SGPT < 6 U/L (21-72); AST/SGOT 14 U/L (17-59); BLOOD UREA NITROGEN 17 mg/dL (9-20); CALCIUM 8.3 mg/dl (8.6-10.4); GFR NON-AFRICAN AMERICAN 28
[2018-10-01 14:21] LABS: HEMOGLOBIN 11.2 g/dL (12.0-18.0); MEAN CELL VOLUME 82.1 fL (80.0-94.0); MEAN CORPUSCULAR HEMOGLOBIN 26.8 pg (27.0-31.0); MEAN CORPUSCULAR HGB CONC 32.6 g/dL (33.0-37.0); MEAN PLATELET VOLUME 8.3 fL (7.2-11.7); RBC 4.18 Mil/uL (4.40-5.90); RED CELL DISTRIBUTION WIDTH 16.4 % (11.5-14.5); WHITE BLOOD COUNT 8.8 K/uL (4.8-10.8)
[2018-10-01 14:35] LABS: CALCIUM 8.5 mg/dl (8.6-10.4)
--- NOTE | 2018-10-01 21:46 | CP.PCM.PN ---
Subjective - Date & Time of Evaluation Date of Evaluation: 10/01/18 Time of Evaluation: 09:00 - Subjective Subjective: dict Objective - Vital Signs/Intake and Output Vital Signs (last 24 hours): Temp Pulse Resp BP Pulse Ox 98.4 F 84 20 137/80 98 10/01/18 15:00 10/01/18 15:00 10/01/18 15:00 10/01/18 15:00 10/01/18 15:00 Intake and Output: 10/01/18 10/02/18 18:59 06:59 Intake Total 1580 Output Total 1215 Balance 365 - Medications Medications: Current Medications Cilostazol (Pletal) 100 mg PO DAILY [facility] Last Admin: 10/01/18 09:54 Dose: 100 mg Docusate Sodium (Colace) 100 mg PO TID [facility] Last Admin: 10/01/18 18:00 Dose: 100 mg Famotidine (Pepcid) 20 mg PO DAILY [facility] Last Admin: 10/01/18 09:53 Dose: 20 mg Hydromorphone HCl (Dilaudid) 0.5 mg IVP Q10M PRN PRN Reason: Pain, moderate (4-7) Last Admin: 09/30/18 11:36 Dose: 0.5 mg Cefazolin Sodium 1,000 mg/ (Sodium Chloride) 100 mls @ 100 mls/hr IVPB Q8H [facility]; Protocol Last Admin: 10/01/18 16:00 Dose: 100 mls/hr Dextrose/Sodium Chloride (Dextrose 5%/0.45% Ns 1000 Ml) 1,000 mls @ 100 mls/hr IV .Q10H [facility] Last Admin: 10/01/18 18:30 Dose: 100 mls/hr Metoprolol Succinate (Toprol Xl) 100 mg PO DAILY [facility] Last Admin: 10/01/18 09:53 Dose: 100 mg Montelukast Sodium (Singulair) 10 mg PO DAILY [facility] Last Admin: 10/01/18 09:53 Dose: 10 mg Oxycodone/Acetaminophen (Percocet 5/325 Mg Tab) 1 tab PO Q4H PRN PRN Reason: Pain, moderate (4-7) Stop: 10/03/18 13:16 Pneumococcal Polyvalent Vaccine (Pneumovax 23 Vaccine) 0.5 ml IM .ONCE ONE Stop: 10/03/18 10:01 Rosuvastatin Calcium (Crestor) 20 mg PO [facility] Last Admin: 09/30/18 21:55 Dose: Not Given Tamsulosin HCl (Flomax) 0.4 mg PO DAILY [facility] Last Admin: 10/01/18 09:53 Dose: 0.4 mg - Labs Labs: 10/01/18 14:13 10/01/18 14:13
[2018-10-02 00:58] VITALS: O2SAT 95
--- NOTE | 2018-10-02 03:12 | PN ---
DATE: 10/01/2018 SUBJECTIVE: The patient is afebrile. No shortness of breath. He is status post lymph node dissection from the groin. He is postop and his potassium is normal. He is on IV fluids. PHYSICAL EXAMINATION: VITAL SIGNS: Blood pressure 137/80, pulse 54, respiratory rate 20, temperature 98.4. LUNGS: Clear. CARDIOVASCULAR SYSTEM: S1 and S2, regular. ABDOMEN: Soft. ASSESSMENT: 1. Scrotal carcinoma, status post lymph node resection. 2. Coronary artery disease. 3. Peripheral arterial disease. 4. Chronic kidney disease. PLAN: Continue current medications. Monitor the patient. Eze Escobar MD
[2018-10-02 07:43] VITALS: BP 138/72; PULSE 79; TEMP 98.3
--- NOTE | 2018-10-02 09:50 | PCM.URO ---
Urology Progress Note - General General: No Complaints, Tolerating Diet - Subjective Abdominal Pain: No Flank Pain: No Nausea: No Vomiting: No Hematuria: No Dsypnea: No Chest Pain: No Fever & Chills: No - Objective Lab Results Last 24 Hours: Laboratory Results - last 24 hr 10/01/18 10/01/18 10/01/18 11:49 11:49 14:13 WBC 8.3 8.8 RBC 3.75 L 4.18 L Hgb 10.0 L 11.2 L Hct 30.6 L 34.3 L MCV 81.6 82.1 MCH 26.6 L 26.8 L MCHC 32.6 L 32.6 L RDW 16.0 H 16.4 H Plt Count 236 260 MPV 8.4 8.3 Neut % (Auto) 59.6 Lymph % (Auto) 30.1 [place] % (Auto) 8.2 Eos % (Auto) 1.7 Baso % (Auto) 0.4 Neut # (Auto) 4.9 Lymph # (Auto) 2.5 [place] # (Auto) 0.7 Eos # (Auto) 0.1 Baso # (Auto) 0.0 Sodium 135 Potassium 4.3 Chloride 106 Carbon Dioxide 22 Anion Gap 11 BUN 17 Creatinine 2.3 H Est GFR ( Amer) 34 Est GFR (Non-Af Amer) 28 Random Glucose 107 D Calcium 8.3 L Total Bilirubin 0.2 AST 14 L D ALT < 6 L Alkaline Phosphatase 99 Total Protein 6.9 Albumin 3.5 D Globulin 3.5 Albumin/Globulin Ratio 1.0 10/01/18 14:13 WBC RBC Hgb Hct MCV MCH MCHC RDW Plt Count MPV Neut % (Auto) Lymph % (Auto) [place] % (Auto) Eos % (Auto) Baso % (Auto) Neut # (Auto) Lymph # (Auto) [place] # (Auto) Eos # (Auto) Baso # (Auto) Sodium 136 Potassium 4.8 Chloride 105 Carbon Dioxide 22 Anion Gap 14 BUN 18 Creatinine 2.3 H Est GFR ( Amer) 34 Est GFR (Non-Af Amer) 28 Random Glucose 111 H Calcium 8.5 L Total Bilirubin AST ALT Alkaline Phosphatase Total Protein Albumin Globulin Albumin/Globulin Ratio Intake & Output: Intake & Output 10/01/18 10/02/18 10/02/18 18:59 06:59 18:59 Intake Total 1580 400 Output Total 1215 50 620 Balance 365 350 -620 Intake: Intake, IV Amount 1100 100 Left Antecubital 1100 100 Oral 480 300 Output: Drainage 40 50 20 Left Upper Thigh 40 50 20 Urine 1175 600 2-way Urethral 1175 600 Other: # Voids 2-way Urethral 2 # Bowel Movements 0 Vital Signs: Vital Signs - 24 hr 10/01/18 10/02/18 10/02/18 15:00 00:00 07:42 Temperature 98.4 F 98.5 F 98.3 F Pulse Rate 84 84 79 Respiratory 20 20 20 Rate Blood Pressure 137/80 124/71 138/72 O2 Sat by Pulse 98 95 95 Oximetry - Physical Exam Abdominal Exam: Soft, Non-Tender, Non-Distended Bowel Sounds: Normal Dressing: Dry (Drain in place, clear drainage), Intact Back: No CVA Tenderness Genitalia: Without Inflammation Urinary Catheter Draining Well: Yes Extremities: Normal: Bilateral - Male Phallus: Normal Scrotum: Normal - Plan Advance Diet: Yes Discontinue Urinary Catheter: Yes Wound Care: Yes Intake & Output: Yes See Orders: Yes Additional Information: IMP: Doing well, POD#1. See orders - Date & Time of Note Date: 10/01/18 Time: 10:00
[2018-10-02] MEDS: Cilostazol 100 mg Tab UD PO SCH (09:57)
[2018-10-02] MEDS: Metoprolol Succinate 100 mg XL Tab PO SCH (09:57)
--- NOTE | 2018-10-02 10:01 | PCM.URO ---
Urology Progress Note - General General: No Complaints, Tolerating Diet - Subjective Abdominal Pain: No Flank Pain: No Nausea: No Vomiting: No Voiding Well: Yes Dysuria: No Hematuria: No [place]: Yes Dsypnea: No Chest Pain: No Fever & Chills: No - Objective Lab Studies: Reviewed Lab Results Last 24 Hours: Laboratory Results - last 24 hr 10/01/18 10/01/18 10/01/18 11:49 11:49 14:13 WBC 8.3 8.8 RBC 3.75 L 4.18 L Hgb 10.0 L 11.2 L Hct 30.6 L 34.3 L MCV 81.6 82.1 MCH 26.6 L 26.8 L MCHC 32.6 L 32.6 L RDW 16.0 H 16.4 H Plt Count 236 260 MPV 8.4 8.3 Neut % (Auto) 59.6 Lymph % (Auto) 30.1 [place] % (Auto) 8.2 Eos % (Auto) 1.7 Baso % (Auto) 0.4 Neut # (Auto) 4.9 Lymph # (Auto) 2.5 [place] # (Auto) 0.7 Eos # (Auto) 0.1 Baso # (Auto) 0.0 Sodium 135 Potassium 4.3 Chloride 106 Carbon Dioxide 22 Anion Gap 11 BUN 17 Creatinine 2.3 H Est GFR ( Amer) 34 Est GFR (Non-Af Amer) 28 Random Glucose 107 D Calcium 8.3 L Total Bilirubin 0.2 AST 14 L D ALT < 6 L Alkaline Phosphatase 99 Total Protein 6.9 Albumin 3.5 D Globulin 3.5 Albumin/Globulin Ratio 1.0 10/01/18 14:13 WBC RBC Hgb Hct MCV MCH MCHC RDW Plt Count MPV Neut % (Auto) Lymph % (Auto) [place] % (Auto) Eos % (Auto) Baso % (Auto) Neut # (Auto) Lymph # (Auto) [place] # (Auto) Eos # (Auto) Baso # (Auto) Sodium 136 Potassium 4.8 Chloride 105 Carbon Dioxide 22 Anion Gap 14 BUN 18 Creatinine 2.3 H Est GFR ( Amer) 34 Est GFR (Non-Af Amer) 28 Random Glucose 111 H Calcium 8.5 L Total Bilirubin AST ALT Alkaline Phosphatase Total Protein Albumin Globulin Albumin/Globulin Ratio Intake & Output: Intake & Output 10/01/18 10/02/1810/02/19 18:59 06:59 18:59 Intake Total 1580 400 Output Total 1215 50 620 Balance 365 350 -620 Intake: Intake, IV Amount 1100 100 Left Antecubital 1100 100 Oral 480 300 Output: Drainage 40 50 20 Left Upper Thigh 40 50 20 Urine 1175 600 2-way Urethral 1175 600 Other: # Voids 2-way Urethral 2 # Bowel Movements 0 Vital Signs: Vital Signs - 24 hr 10/01/18 10/02/18 10/02/18 15:00 00:00 07:42 Temperature 98.4 F 98.5 F 98.3 F Pulse Rate 84 84 79 Respiratory 20 20 20 Rate Blood Pressure 137/80 124/71 138/72 O2 Sat by Pulse 98 95 95 Oximetry - Physical Exam Abdominal Exam: Soft, Non-Tender, Non-Distended Bowel Sounds: Normal Wound: Clean, Healing Well Back: No CVA Tenderness Genitalia: Without Inflammation Urine Color: Clear, Yellow - Male Phallus: Normal Scrotum: Normal - Plan Wound Care: Yes Additional Information: Drain care. Wound care - Date & Time of Note Date: 10/02/18 Time: 10:01
[2018-10-02] MEDS: Dextrose 5%/0.45% NS 1,000 ML IV SCH (13:09)
--- NOTE | 2018-10-02 13:18 | CP.PCM.PN ---
Subjective - Date & Time of Evaluation Date of Evaluation: 10/02/18 Time of Evaluation: 13:17 - Subjective Subjective: PATIENT SEEN AND EXAMINED AT THE BEDSIDE Objective - Vital Signs/Intake and Output Vital Signs (last 24 hours): Temp Pulse Resp BP Pulse Ox 98.3 F 79 20 138/72 95 10/02/18 07:42 10/02/18 07:42 10/02/18 07:42 10/02/18 07:42 10/02/18 07:42 Intake and Output: 10/02/18 10/02/18 06:59 18:59 Intake Total 400 Output Total 50 620 Balance 350 -620 - Medications Medications: Current Medications Cilostazol (Pletal) 100 mg PO DAILY [facility] Last Admin: 10/02/18 09:57 Dose: 100 mg Docusate Sodium (Colace) 100 mg PO TID [facility] Last Admin: 10/02/18 09:57 Dose: 100 mg Famotidine (Pepcid) 20 mg PO DAILY [facility] Last Admin: 10/02/18 09:57 Dose: 20 mg Hydromorphone HCl (Dilaudid) 0.5 mg IVP Q10M PRN PRN Reason: Pain, moderate (4-7) Last Admin: 09/30/18 11:36 Dose: 0.5 mg Dextrose/Sodium Chloride (Dextrose 5%/0.45% Ns 1000 Ml) 1,000 mls @ 100 mls/hr IV .Q10H [facility] Last Admin: 10/02/18 13:09 Dose: Not Given Metoprolol Succinate (Toprol Xl) 100 mg PO DAILY [facility] Last Admin: 10/02/18 09:57 Dose: 100 mg Montelukast Sodium (Singulair) 10 mg PO DAILY [facility] Last Admin: 10/02/18 09:57 Dose: 10 mg Oxycodone/Acetaminophen (Percocet 5/325 Mg Tab) 1 tab PO Q4H PRN PRN Reason: Pain, moderate (4-7) Stop: 10/03/18 13:16 Pneumococcal Polyvalent Vaccine (Pneumovax 23 Vaccine) 0.5 ml IM .ONCE ONE Stop: 10/03/18 10:01 Rosuvastatin Calcium (Crestor) 20 mg PO HS [facility] Last Admin: 09/30/18 21:55 Dose: Not Given Tamsulosin HCl (Flomax) 0.4 mg PO DAILY [facility] Last Admin: 10/02/18 09:57 Dose: 0.4 mg - Labs Labs: 10/01/18 14:13 10/01/18 14:13 Assessment and Plan - Assessment and Plan (Free Text) Assessment: FOLLOW UP WITH DR BALL IN HIS OFFICE IN A WEEK FOLLOW UP WITH DR CALLES CONTINUE HOME MEDICATION ACTIVITY TOLERATED WILDER DRAINAGE INSTRUCTION PER NURSE CALL DR CALLES OR DR BALL OR GO TO THE EMERGENCY ROOM IF SYMPTOM RETURN OR WORSENING .
[2018-10-02] MEDS ORDERED: Pneumococcal 23-Valent Vaccine IM ONE (14:00)
--- NOTE | 2018-10-02 17:21 | CP.PCM.DIS ---
Provider - Provider Date of Admission: 09/30/18 05:59 Attending physician: Rosanna Khan MD Consults: 09/30/18 20:11 Physician Consult Routine Comment: Consulting Provider: Eze Escobar Consulting Physician: Eze Escobar Reason for Consult: Medical management Time Spent in preparation of Discharge (in minutes): 30 Hospital Course - Lab Results Lab Results: Most Recent Lab Values WBC 8.8 K/uL (4.8-10.8) 10/01/18 14:13 RBC 4.18 Mil/uL (4.40-5.90) L 10/01/18 14:13 Hgb 11.2 g/dL (12.0-18.0) L 10/01/18 14:13 Hct 34.3 % (35.0-51.0) L 10/01/18 14:13 MCV 82.1 fL (80.0-94.0) 10/01/18 14:13 MCH 26.8 pg (27.0-31.0) L 10/01/18 14:13 MCHC 32.6 g/dL (33.0-37.0) L 10/01/18 14:13 RDW 16.4 % (11.5-14.5) H 10/01/18 14:13 Plt Count 260 K/uL (130-400) 10/01/18 14:13 MPV 8.3 fL (7.2-11.7) 10/01/18 14:13 Neut % (Auto) 59.6 % (50.0-75.0) 10/01/18 11:49 Lymph % (Auto) 30.1 % (20.0-40.0) 10/01/18 11:49 [place] % (Auto) 8.2 % (0.0-10.0) 10/01/18 11:49 Eos % (Auto) 1.7 % (0.0-4.0) 10/01/18 11:49 Baso % (Auto) 0.4 % (0.0-2.0) 10/01/18 11:49 Neut # (Auto) 4.9 K/uL (1.8-7.0) 10/01/18 11:49 Lymph # (Auto) 2.5 K/uL (1.0-4.3) 10/01/18 11:49 [place] # (Auto) 0.7 K/uL (0.0-0.8) 10/01/18 11:49 Eos # (Auto) 0.1 K/uL (0.0-0.7) 10/01/18 11:49 Baso # (Auto) 0.0 K/uL (0.0-0.2) 10/01/18 11:49 Sodium 136 mmol/L (132-148) 10/01/18 14:13 Potassium 4.8 mmol/L (3.6-5.2) 10/01/18 14:13 Chloride 105 mmol/L (98-107) 10/01/18 14:13 Carbon Dioxide 22 mmol/L (22-30) 10/01/18 14:13 Anion Gap 14 (10-20) 10/01/18 14:13 BUN 18 mg/dL (9-20) 10/01/18 14:13 Creatinine 2.3 mg/dL (0.8-1.5) H 10/01/18 14:13 Est GFR ( Amer) 34 10/01/18 14:13 Est GFR (Non-Af Amer) 28 10/01/18 14:13 Random Glucose 111 mg/dL (75-110) H 10/01/18 14:13 Calcium 8.5 mg/dl (8.6-10.4) L 10/01/18 14:13 Total Bilirubin 0.2 mg/dL (0.2-1.3) 10/01/18 11:49 AST 14 U/L (17-59) L D 10/01/18 11:49 ALT < 6 U/L (21-72) L 10/01/18 11:49 Alkaline Phosphatase 99 U/L (38-126) 10/01/18 11:49 Total Protein 6.9 g/dL (6.3-8.3) 10/01/18 11:49 Albumin 3.5 g/dL (3.5-5.0) D 10/01/18 11:49 Globulin 3.5 gm/dL (2.2-3.9) 10/01/18 11:49 Albumin/Globulin Ratio 1.0 (1.0-2.1) 10/01/18 11:49 Discharge Plan - Follow Up Plan Condition: GOOD Disposition: HOME/ ROUTINE Instructions: Testicular Cancer, Shaan-Fang Drain, Cephalexin Additional Instructions: FOLLOW UP WITH DR KHAN IN HIS OFFICE IN A WEEK FOLLOW UP WITH DR ESCOBAR CONTINUE HOME MEDICATION ACTIVITY TOLERATED WILDER DRAINAGE INSTRUCTION PER NURSE CALL DR ESCOBAR OR DR KHAN OR GO TO THE EMERGENCY ROOM IF SYMPTOM RETURN OR WORSENING . Referrals: Eze Escobar MD [Staff Provider] - Rosanna Khan MD [Staff Provider] -
--- NOTE | 2018-10-03 06:49 | DS ---
DISCHARGE DIAGNOSES: 1. Status post lymph node dissection. 2. Scrotal cancer. 3. Chronic kidney disease. 4. Hypertension. 5. Coronary artery disease. HISTORY OF PRESENT ILLNESS: This is a 73-year-old male with a history of scrotal cancer, hypertension, hyperlipidemia, CKD, status post multiple stents, in his usual status of health. He is ambulatory and independent in activities of daily living, compliant with diet, medication and followup. Recently, he was discharged from [facility] with hyperkalemia. The patient was admitted. The patient underwent lymph node resection from the groin, and postoperatively, he was observed in the hospital. The patient did well. He denies any shortness of breath, chest pain. He denies any history of nausea, vomiting, diarrhea. He denies any history of polyuria, polydipsia, polyphagia. PHYSICAL EXAMINATION: VITAL SIGNS: Blood pressure 138/72, pulse 79, respiratory rate 20, temperature 98.3. LUNGS: Clear. CARDIOVASCULAR SYSTEM: S1, S2. Regular. ABDOMEN: Soft. PLAN: Discharge patient home on outpatient followup. CONDITION UPON DISCHARGE: Stable. Eze Escobar MD
--- NOTE | 2018-10-03 08:45 | OP ---
PROCEDURE DATE: 09/30/2018 PREOPERATIVE DIAGNOSIS: Scrotal carcinoma. Left inguinal lymphadenopathy. PROCEDURE: Left inguinal lymphadenectomy. OPERATING SURGEON: Rosanna Khan MD; Jonathan Benz MD PROCEDURE: As follows: The patient received perioperative antibiotics. The patient was in the supine position. General anesthesia was administered by the anesthesiologist. The patient was placed in a supine position with the left hip mildly externally rotated. A meticulous antibiotic skin prep of the genitalia and the left inguinal area as well as the thigh and lower abdomen was performed. An oblique skin incision was made parallel to and approximately 2 cm below the left inguinal ligament. The excision was extended through the skin and subcutaneous tissue. Hemostasis was achieved using electrocautery. Incision was extended down to the level of the Juan Manuel's fascia. The skin flaps were raised deep to Juan Manuel's fascia thus maintaining thick well vascularized skin flaps. The mobilization was performed proximally and distally. The dissection was continued by sharp dissection down to the saphenous vein. . There was noted to be moderate inguinal lymphadenopathy. By sharp dissection, the left inguinal lymph node package was mobilized. The lymphatics were secured with hemoclips as well as with bipolar cautery. The superficial circumflex and epigastric veins were divided as they entered the lymph node mass. Proximal double ligatures of 2-0 silk as well as hemoclips were placed on the veins. The mass was thus fully mobilized and excised. The borders of the dissection included the adductor longus muscle and the sartorius muscle which were exposed both laterally and medially, the cephalad extent of dissection included the inguinal ligament. The saphenous vein was also divided as it coursed more deeply into the junction with the femoral vein. The wound was copiously irrigated. The wound was inspected for hemostasis which was complete. The 15-mm Navdeep drain was placed through a separate stab wound on the inferolateral aspect of the wound. The wound was then closed in two layers, first with interrupted sutures of 3-0 Dexon in the subcutaneous tissue, followed by a subcuticular closure with Monocryl. A sterile dressing was applied. Attention was then turned toward the skin lesion in the right thigh, which the patient had requested to be removed. This area had been prepped and draped in the sterile fashion. An elliptical skin incision was made. The mass was fully excised with a margin on all sides as well as the deep margin. Hemostasis was achieved using electrocautery. The subcutaneous tissue was approximated with interrupted sutures of Dexon. Skin elza and sterile dressing were applied. The patient tolerated the procedure without complication. Rosanna MD Erin cc: MD Jonathan Bernard MD
== END 2018-10-02 14:58 | disposition home or self-care (01) | DRG 824 ==
LOC: C.9S 05:59 → C.3T 18:23
PROVIDERS: ADMIT Urology; ATTEND Urology
PROC: 07BJ0ZZ Excision of Left Inguinal Lymphatic, Open Approach (ICD-10-PCS; principal; 2018-09-30 07:45)
PROC: 0JBL0ZZ Excision of Right Upper Leg Subcutaneous Tissue and Fascia, Open Approach (ICD-10-PCS; 2018-09-30 07:45)
DX: C77.4 Secondary and unspecified malignant neoplasm of inguinal and lower limb lymph nodes (principal); D23.71 Other benign neoplasm of skin of right lower limb, including hip; C63.2 Malignant neoplasm of scrotum; N18.4 Chronic kidney disease, stage 4 (severe); R07.9 Chest pain, unspecified; I12.9 Hypertensive chronic kidney disease with stage 1 through stage 4 chronic kidney disease, or unspecified chronic kidney disease; I25.10 Atherosclerotic heart disease of native coronary artery without angina pectoris; N40.0 Benign prostatic hyperplasia without lower urinary tract symptoms; J44.9 Chronic obstructive pulmonary disease, unspecified; E78.00 Pure hypercholesterolemia, unspecified; E78.5 Hyperlipidemia, unspecified; I73.9 Peripheral vascular disease, unspecified; H54.62 Unqualified visual loss, left eye, normal vision right eye; Z95.5 Presence of coronary angioplasty implant and graft; Z87.891 Personal history of nicotine dependence